=== PATIENT | male | born 1965 | race Caucasian/White ===

== ENCOUNTER 2020-04-14 23:10 | Emergency (ER) | payer SELFPAY ==
[~2020-04-14] VITALS: Ht 162.6 cm; Wt 87.5 kg
[2020-04-14 23:21] VITALS: BP 185/113
[2020-04-14] MEDS ORDERED: ENALAPRIL 10 MG TAB PO ONE (23:30)
--- NOTE | 2020-04-14 23:30 | NUR ---
54 YEAR OLD MALE COMPLAINS OF HIGH BLOOD PRESSURE AFTER EATING SOMETHING WITH ALOT OF SALT IN IT. PT STATES HE ALSO HAS A MILD HEADACHE THAT USED TO BE WORSE EARLIER. PT BP 186/92, HR 71. PT DENIES CP, DENIES N/V. PT AOX4, BREATHING EVEN AND UNLABORED, SKIN WARM AND DRY. BED IN LOWEST POSITION, LOCKED, BED RAIL UPX1. ERMD MADE AWARE PMH - DENIES ALLERGIES - NKA
--- NOTE | 2020-04-14 23:47 | NUR ---
DR LOWERY AT BEDSIDE
[2020-04-15 00:30] VITALS: BP 152/91
--- NOTE | 2020-04-15 00:30 | NUR ---
Patient discharged with v/s stable. Written and verbal after care instructions about hypertension given and explained. Patient alert, oriented and verbalized understanding of instructions. Ambulatory with steady gait. All questions addressed prior to discharge. ID band removed. Patient advised to follow up with PMD. Rx of ibuprofen given. Patient educated on indication of medication including possible reaction and side effects. Opportunity to ask questions provided and answered.
== END 2020-04-15 00:30 | disposition home or self-care (01) ==
LOC: MED 23:10
DX: I10 Essential (primary) hypertension (principal)
CPT/HCPCS: 99283